=== PATIENT | male | born 1950 | race Caucasian/White ===

== ENCOUNTER 2017-07-26 00:02 | Emergency (ER) | payer MEDICARE, OTHER ==
[~2017-07-26] VITALS: Ht 177.8 cm; Wt 89.9 kg
--- NOTE | 2017-07-26 01:10 | PHYS DOC ---
Adult General Chief Complaint Chief Complaint: MECHANICAL FALL HPI HPI Patient is a 66-year-old male presenting to the emergency department for evaluation of multiple areas of pain status post fall down 15 steps. Patient took a total of 610 mg Ambien tablets in approximately 2 hour times and with his last one being at 9 PM. He was trying to get up and go the bathroom and was apparently confused and was at the top of the stairway and fell down. He was immediately arousable by family and they wanted to call EMS however patient said that he was feeling fine so they drove him here. says that this is not uncommon for him to take multiple doses of Ambien but usually only takes 2- 3 tablets. He says that he did not do this to hurt himself rather he has a great deal of difficulty sleeping and has not slept in 2-3 days so he took the increased ambient doses. He is complaining of pain in his left hip and pelvis left shoulder left elbow and right pinky finger Review of Systems Review of Systems Constitutional: Denies fever or chills [] Eyes: Denies change in visual acuity, redness, or eye pain [] HENT: Denies nasal congestion or sore throat [] Respiratory: Denies cough or shortness of breath [] Cardiovascular: No additional information not addressed in HPI [] GI: Denies abdominal pain, nausea, vomiting, bloody stools or diarrhea [] : Denies dysuria or hematuria [] Musculoskeletal: + back pain, joint pain [] Integument: + abrasion Neurologic: Denies headache, focal weakness or sensory changes [] All other systems were reviewed and found to be within normal limits, except as documented in this note. Current Medications Current Medications Current Medications Medications (Trade) Dose Ordered Sig/Ginny Start Time Stop Time Status Last Admin Dose Admin Diphtheria/ Tetanus/Acell Pertussis (Boostrix) 0.5 ml ONCE ONCE 07/26/17 01:00 07/26/17 01:01 UNV Physical Exam Physical Exam Constitutional: Well developed, well nourished, no acute distress, non-toxic appearance. [] HENT: Normocephalic, atraumatic, bilateral external ears normal, oropharynx moist, no oral exudates, nose normal. [] Eyes: PERRLA, EOMI, conjunctiva normal, no discharge. [] Neck: + diffuse midline and paraspinal C spine pain to palpation Cardiovascular:Heart rate regular rhythm, no murmur [] Lungs & Thorax: Bilateral breath sounds clear to auscultation [] Abdomen: Bowel sounds normal, soft, no tenderness, no masses, no pulsatile masses. [] Skin: multiple abrasions and skin tears Back: + ttp of midline t and l spine Extremities: ttp of BL elbows and L hand Neurologic: Alert and oriented X 3, normal motor function, normal sensory function, no focal deficits noted. [] EKG EKG [] Radiology/Procedures Radiology/Procedures CT lumbar spine without contrast History: Pain status post fall Axial helical images of the lumbar spine were obtained without contrast. Axial, coronal and sagittal reconstruction was performed. Findings: The vertebral bodies are aligned. There is no loss of vertebral body stature. There is a distracted fractures of the left transverse process of L4. Evaluation of the central canal is limited without contrast. Diffuse circumferential disc bulge and hypertrophy of the facets and ligament flavum results in mild to moderate central stenosis at L2-L3 and mild central stenosis at L3-L4. There is moderate narrowing of multiple neuroforamen below the level of the exiting nerve roots. Impression: Acute traumatic fracture of the left transverse process of L4. PQRS Compliance Statement: One or more of the following individualized dose reduction techniques were utilized for this examination: 1. Automated exposure control 2. Adjustment of the mA and/or kV according to patient size 3. Use of iterative reconstruction technique Electronically signed by: Syed Wilhelm III, MD (07/26/2017 2:06 AM) [place] [id number] DICTATED AND SIGNED BY: SYED WILHELM III, MD DATE: 07/26/17157 CT thoracic spine without contrast History: Back pain Axial helical images of the thoracic spine were obtained without contrast. Axial, coronal and sagittal reconstruction was performed. Findings: The vertebral bodies are aligned. There is no loss of vertebral body stature. Evaluation of the central canal is limited without contrast. There is no evidence of significant central or neuroforaminal stenosis. Impression: No acute findings. PQRS Compliance Statement: One or more of the following individualized dose reduction techniques were utilized for this examination: 1. Automated exposure control 2. Adjustment of the mA and/or kV according to patient size 3. Use of iterative reconstruction technique Electronically signed by: Syed Wilhelm III, MD (07/26/2017 2:12 AM) [place] [id number] DICTATED AND SIGNED BY: SYED WILHELM III, MD DATE: 07/26/[address] Head W/O Contrast: History: Pain, s/p fall. Abrasion to forehead. Hx degenerative disc disease in c-spine Comparison: none Axial images were obtained without contrast. The garcias and white matter appears normal and symmetrical for the patients age. There is no mass effect, extraaxial fluid collections or hydrocephalus. There is no gross bleed. There is no focal loss of garcias-white matter distinction to suggest acute ischemia, i.e. stroke. Impression: No acute findings. End impression CT C-Spine without contrast: Clinical History: Pain, s/p fall. Abrasion to forehead. Hx degenerative disc disease in c-spine Technique: Axial helical images of the cervical spine were obtained without contrast, axial coronal and sagittal reconstruction was performed. Findings: Mild loss of stature of the C6 and C7 vertebral bodies appears be secondary to degenerative endplate changes. There is no prevertebral soft tissue swelling. The vertebral bodies are well aligned. There is straightening of the normal cervical lordosis which can be positional or could be chronic. The C1-C2 relationship is normal. The visualized osseous structures appear normal. Evaluation of the central canal is limited without contrast. There is multiple posterior disc bulges resulting in flattening of the thecal sac. There does not appear to be gross flattening of the cervical cord. There is moderate narrowing of multiple neuroforamen. Impression: No acute findings. Clinical correlation suggested. PQRS Compliance Statement: One or more of the following individualized dose reduction techniques were utilized for this examination: 1. Automated exposure control 2. Adjustment of the mA and/or kV according to patient size 3. Use of iterative reconstruction technique Electronically signed by: Syed Wilhelm III, MD (07/26/2017 3:33 AM) [facility] DICTATED AND SIGNED BY: SYED WILHELM III, MD DATE: 07/26/[address] chest abdomen and pelvis with contrast: History: Pain status post fall Axial helical images of the chest abdomen and pelvis were obtained after the administration of 75 cc IV Isovue-370 contrast. Delayed images were obtained from above the kidneys to the urinary bladder. Comparison: none CT OF THE CHEST WITH IV CONTRAST: There is no mediastinal lymphadenopathy or hematoma. There is no hilar lymphadenopathy. Impression: No acute findings. End Impression CT SCAN OF THE ABDOMEN WITH IV CONTRAST: Findings: Liver: Unremarkable Spleen: Unremarkable Pancreas: Unremarkable Adrenal Glands: Unremarkable Kidneys: Unremarkable Evaluation of stomach and bowel is limited without oral contrast. There is no mass or lymphadenopathy. There is no free air. There is no free fluid. Impression: No acute findings. End Impression CT OF THE PELVIS WITH IV CONTRAST: There is no lymphadenopathy or free fluid. The bladder appears normal without extravasation of contrast. There is no pericolonic inflammation. There is a 4 cm soft tissue hematoma posterior laterally on the left. Impression: 4 cm soft tissue flank hematoma on the left. End impression PQRS Compliance Statement: One or more of the following individualized dose reduction techniques were utilized for this examination: 1. Automated exposure control 2. Adjustment of the mA and/or kV according to patient size 3. Use of iterative reconstruction technique Electronically signed by: Syed Wilhelm III, MD (07/26/2017 3:57 AM) [facility] DICTATED AND SIGNED BY: SYED WILHELM III, MD DATE: 07/26/17 0333 Course & Med Decision Making Course & Med Decision Making I spoke to poison center about the Ambien ingestion and they recommended observation for 4-6 hours or until completely mentally clear. Patient is surprisingly arousable and interactive. Given his age and mechanism with ingestion he will get CT scan and plain films of the areas that are hurting him. tdap updated. He said he was willing to walk on scene but he was slow and had significant pain to L hip. Patient is quite interesting and pleasant to be around. Unfortunately he has some sleep issues and took too much of his Ambien. He admitted it was a dumb thing to do and said that he would refrain from doing this in the future. Fortunately for the patient he does not appear to have any life-threatening injuries. On repeat examination he has a normal neurologic exam with normal vital signs and is wanting to go home and smokes cigarettes. Patient is stable for discharge in my estimation as he is up walking around in no obvious distress. I discussed the hematoma and the transverse process fracture and all other incidental findings with the patient. I told him that he would need follow-up for these findings and the incidental findings early next week. I told him about rice recommendations in addition to NSAIDs. Patient told to come back to the emergency department with worsening pain weakness or other general concerns. Patient aware and agreeable with plan for discharge and verbalized understanding of the above instructions. Dragon Disclaimer Dragon Disclaimer This electronic medical record was generated, in whole or in part, using a voice recognition dictation system. Departure Departure: Impression: Primary Impression: Fracture of transverse process of lumbar vertebra Additional Impressions: Multiple abrasions Hematoma of left flank Disposition: HOME, SELF-CARE Condition: STABLE Referrals: ROHAN GOMEZ (PCP) Patient Instructions: Transverse Process Fracture Additional Instructions: TAKE 400MG OF IBUPROFEN EVERY 6 HOURS AND THE NORCO FOR BREAKTHROUGH PAIN. FOLLOW WITH A PCP ON FRIDAY OR FRIDAY TO ENSURE IMPROVEMENT AND COME BACK TO THE ED WITH ANY NEW OR WORSENING SYMPTOMS. THANK YOU! Scripts Hydrocodone Bit/Acetaminophen (NORCO 5-325 TABLET) 1 Each Tablet 1 TAB PO PRN Q6HRS Y for PAIN, #20 TAB 0 Refills Prov: RONNIE ALARCON DO 07/26/17 Problem Qualifiers Primary Impression: Fracture of transverse process of lumbar vertebra Encounter type: initial encounter Fracture type: closed Qualified Codes: S32.009A - Unspecified fracture of unspecified lumbar vertebra, initial encounter for closed fracture RONNIE ALARCON DO Jul 26, 2017 01:10
[2017-07-26] MEDS ORDERED: DIPHTH,PERTUSS(ACELL),TET TOX 0.5 ML DISP.SYRIN. VAX IM ONE (01:30)
--- NOTE | 2017-07-26 02:09 | RAD ---
CT lumbar spine without contrast History: Pain status post fall Axial helical images of the lumbar spine were obtained without contrast. Axial, coronal and sagittal reconstruction was performed. Findings: The vertebral bodies are aligned. There is no loss of vertebral body stature. There is a distracted fractures of the left transverse process of L4. Evaluation of the central canal is limited without contrast. Diffuse circumferential disc bulge and hypertrophy of the facets and ligament flavum results in mild to moderate central stenosis at L2-L3 and mild central stenosis at L3-L4. There is moderate narrowing of multiple neuroforamen below the level of the exiting nerve roots. Impression: Acute traumatic fracture of the left transverse process of L4. PQRS Compliance Statement: One or more of the following individualized dose reduction techniques were utilized for this examination: 1. Automated exposure control 2. Adjustment of the mA and/or kV according to patient size 3. Use of iterative reconstruction technique Electronically signed by: Swapnil Pat III, MD (07/26/2017 2:06 AM) [facility]
--- NOTE | 2017-07-26 02:15 | RAD ---
CT thoracic spine without contrast History: Back pain Axial helical images of the thoracic spine were obtained without contrast. Axial, coronal and sagittal reconstruction was performed. Findings: The vertebral bodies are aligned. There is no loss of vertebral body stature. Evaluation of the central canal is limited without contrast. There is no evidence of significant central or neuroforaminal stenosis. Impression: No acute findings. PQRS Compliance Statement: One or more of the following individualized dose reduction techniques were utilized for this examination: 1. Automated exposure control 2. Adjustment of the mA and/or kV according to patient size 3. Use of iterative reconstruction technique Electronically signed by: Swapnil Pat III, MD (07/26/2017 2:12 AM) [facility]
[2017-07-26 02:33] LABS: ALBUMIN 4.2 g/dL (3.4-5.0); ALBUMIN/GLOBULIN RATIO 1.3 (1.0-1.7); CALCIUM 9.1 mg/dL (8.5-10.1); CREATININE 1.1 mg/dL (0.7-1.3); POTASSIUM 3.7 mmol/L (3.5-5.1); TOTAL BILIRUBIN 0.3 mg/dL (0.2-1.0); TOTAL PROTEIN 7.5 g/dL (6.4-8.2)
[2017-07-26 02:43] LABS: BASO # 0.1 x10^3/uL (0.0-0.2); BASO % 1 % (0-3); EOS # 0.1 x10^3/uL (0.0-0.7); EOS % 0 % (0-3); HEMATOCRIT 39.2 % (39.0-53.0); HEMOGLOBIN 13.5 g/dL (13.0-17.5); LYMPH # 1.7 x10^3/uL (1.0-4.8); LYMPH % 12 % (24-48); MEAN CORPUSCULAR HEMOGLOBIN 33 pg (25-35); MEAN CORPUSCULAR HGB CONC 34 g/dL (31-37); MEAN CORPUSCULAR VOLUME 95 fL (79-100); MONO % 7 % (0-9); NEUT # 12.1 x10^3uL (1.8-7.7); NEUT % 81 % (31-73); PLATELET COUNT 299 x10^3/uL (140-400); RED BLOOD COUNT 4.13 x10^6/uL (4.30-5.70); RED CELL DISTRIBUTION WIDTH 13.7 % (11.5-14.5); WHITE BLOOD COUNT 14.9 x10^3/uL (4.0-11.0)
[2017-07-26] MEDS ORDERED: IOHEXOL 300 MG/ML 75 ML VIAL. IV ONE (03:00)
[2017-07-26] MEDS ORDERED: CONTRAST GIVEN MC PRN (03:15)
--- NOTE | 2017-07-26 03:36 | RAD ---
CT Head W/O Contrast: History: Pain, s/p fall. Abrasion to forehead. Hx degenerative disc disease in c-spine Comparison: none Axial images were obtained without contrast. The garcias and white matter appears normal and symmetrical for the patients age. There is no mass effect, extraaxial fluid collections or hydrocephalus. There is no gross bleed. There is no focal loss of garcias-white matter distinction to suggest acute ischemia, i.e. stroke. Impression: No acute findings. End impression CT C-Spine without contrast: Clinical History: Pain, s/p fall. Abrasion to forehead. Hx degenerative disc disease in c-spine Technique: Axial helical images of the cervical spine were obtained without contrast, axial coronal and sagittal reconstruction was performed. Findings: Mild loss of stature of the C6 and C7 vertebral bodies appears be secondary to degenerative endplate changes. There is no prevertebral soft tissue swelling. The vertebral bodies are well aligned. There is straightening of the normal cervical lordosis which can be positional or could be chronic. The C1-C2 relationship is normal. The visualized osseous structures appear normal. Evaluation of the central canal is limited without contrast. There is multiple posterior disc bulges resulting in flattening of the thecal sac. There does not appear to be gross flattening of the cervical cord. There is moderate narrowing of multiple neuroforamen. Impression: No acute findings. Clinical correlation suggested. PQRS Compliance Statement: One or more of the following individualized dose reduction techniques were utilized for this examination: 1. Automated exposure control 2. Adjustment of the mA and/or kV according to patient size 3. Use of iterative reconstruction technique Electronically signed by: Swapnil Pat III, MD (07/26/2017 3:33 AM) [facility]
[2017-07-26 03:56] VITALS: BP 129/94
--- NOTE | 2017-07-26 04:00 | RAD ---
CT chest abdomen and pelvis with contrast: History: Pain status post fall Axial helical images of the chest abdomen and pelvis were obtained after the administration of 75 cc IV Isovue-370 contrast. Delayed images were obtained from above the kidneys to the urinary bladder. Comparison: none CT OF THE CHEST WITH IV CONTRAST: There is no mediastinal lymphadenopathy or hematoma. There is no hilar lymphadenopathy. Impression: No acute findings. End Impression CT SCAN OF THE ABDOMEN WITH IV CONTRAST: Findings: Liver: Unremarkable Spleen: Unremarkable Pancreas: Unremarkable Adrenal Glands: Unremarkable Kidneys: Unremarkable Evaluation of stomach and bowel is limited without oral contrast. There is no mass or lymphadenopathy. There is no free air. There is no free fluid. Impression: No acute findings. End Impression CT OF THE PELVIS WITH IV CONTRAST: There is no lymphadenopathy or free fluid. The bladder appears normal without extravasation of contrast. There is no pericolonic inflammation. There is a 4 cm soft tissue hematoma posterior laterally on the left. Impression: 4 cm soft tissue flank hematoma on the left. End impression PQRS Compliance Statement: One or more of the following individualized dose reduction techniques were utilized for this examination: 1. Automated exposure control 2. Adjustment of the mA and/or kV according to patient size 3. Use of iterative reconstruction technique Electronically signed by: Swapnil Pat III, MD (07/26/2017 3:57 AM) [facility]
[2017-07-26] MEDS ORDERED: KETOROLAC 15 MG/ML VIAL. IV ONE (04:15)
[2017-07-26] MEDS ORDERED: HYDROcodone/APAP 5/325MG 1 TAB TABLET PO ONE (04:15)
[2017-07-26] MEDS ORDERED: HYDR-971 PO (04:16)
--- NOTE | 2017-07-26 07:25 | RAD ---
Left hand, 3 views, 07/26/2017: History: Fall, pain No fracture or dislocation is identified. There is mild degenerative change at the first CMC joint. IMPRESSION: No acute bony abnormality is detected.
--- NOTE | 2017-07-26 07:26 | RAD ---
Bilateral elbows, 6 views, 07/26/2017: History: Fall, pain No fracture or dislocation is identified. No joint effusion is seen. IMPRESSION: No acute bony abnormality is detected.
== END 2017-07-26 04:20 | disposition home or self-care (01) ==
LOC: ER 00:02
DX: S32.048A Other fracture of fourth lumbar vertebra, initial encounter for closed fracture (principal); S30.1XXA Contusion of abdominal wall, initial encounter; S00.81XA Abrasion of other part of head, initial encounter; M25.552 Pain in left hip; M25.522 Pain in left elbow; M25.521 Pain in right elbow; W10.8XXA Fall (on) (from) other stairs and steps, initial encounter; Y93.89 Activity, other specified; Y99.8 Other external cause status; Y92.89 Other specified places as the place of occurrence of the external cause
CPT/HCPCS: 36415; 70450; 71260; 72125; 72128; 72131; 73080; 73130; 74177; 80053; 83690; 83735; 85025; 85610; 85730; 90471; 90715; 99285; G0480; Q9967

== ENCOUNTER 2019-08-13 15:16 | Emergency (ER) | payer MEDICARE, OTHER ==
[~2019-08-13] VITALS: Ht 177.8 cm; Wt 90.0 kg
[~2019-08-13 15:16] MED LIST: HYDR-3165 PO
[2019-08-13 15:20] VITALS: BP 112/84
--- NOTE | 2019-08-13 15:44 | RAD ---
Study: CR FOOT RIGHT 3V Indication: Injury. Comparison: None. Findings: Bipartite configuration of both hallux sesamoids. Relatively pronounced diastases between the two halves of both sesamoids though with well-corticated margins. No acute fracture is seen throughout the foot or traumatic malalignment. Chronic scalloping along the posterior/medial aspect of the navicular at the expected location of the posterior tibial tendon insertion. Impression: No acute fracture or traumatic malalignment is identified. There is a bipartite configuration of both hallux sesamoids with relatively pronounced diastases between the two halves of both sesamoids. This does not appear acute by radiography but recommend correlation for localized tenderness. Electronically signed by: SHAHID EBNNETT MD (08/13/2019 3:41 PM) [id number]
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
[2019-08-13] MEDS ORDERED: HYDR-3165 PO (16:04)
== END 2019-08-13 16:08 | disposition home or self-care (01) ==
LOC: ER 15:16
DX: S90.31XA Contusion of right foot, initial encounter (principal); E78.00 Pure hypercholesterolemia, unspecified; I10 Essential (primary) hypertension; V29.9XXA Motorcycle rider (driver) (passenger) injured in unspecified traffic accident, initial encounter; Y93.89 Activity, other specified; Y92.89 Other specified places as the place of occurrence of the external cause; Y99.8 Other external cause status
CPT/HCPCS: 73630; 99283

== ENCOUNTER → 2019-12-17 | Outpatient (CLI) | payer MEDICARE, OTHER ==
--- NOTE | 2019-12-17 09:21 | RAD ---
PROCEDURE: WRIST 3V RIGHT CLINICAL INDICATION / HISTORY: Reason: RIGHT WRIST PAIN, GANGLION CYST ON LATERAL WRIST FOR 1 YR / Spl. Instructions: / History: . TECHNIQUE: Right wrist 3 views. AP, lateral, oblique views. COMPARISON: Contralateral, left hand x-rays of 07/26/2017 FINDINGS: The radiocarpal and intracarpal relationships are maintained. There is no fracture or dislocation. The bone density is normal. Soft tissues show smooth, convex marginated 1 cm soft tissue mass superficial to the radial styloid process.. IMPRESSION: No acute osseous abnormality. There is a 1 cm soft tissue mass superficial to the radial styloid process. This can be evaluated in greater detail with MRI on an elective basis if clinically warranted. Electronically signed by: Raymond Amador MD (12/17/2019 9:18 AM) [id number]
== END | disposition home or self-care (01) ==
LOC: DXRAD 08:26
PROVIDERS: ATTEND Orthopaedic Surgery Sports Medicine
DX: M67.431 Ganglion, right wrist (principal); M25.531 Pain in right wrist
CPT/HCPCS: 73110

== ENCOUNTER 2020-01-25 08:27 | Emergency (ER) | payer MEDICARE, OTHER ==
[~2020-01-25] VITALS: Ht 177.8 cm; Wt 89.2 kg
[2020-01-25] MEDS ORDERED: IOHEXOL 300 MG/ML 75 ML VIAL. IV ONE (08:45)
[2020-01-25] MEDS ORDERED: FAMOTIDINE 20 MG/2 ML VIAL IVP ONE (08:45)
[2020-01-25] MEDS ORDERED: IV NORMAL SALINE 1,000ML 1,000 ML IV ONE (08:45)
[2020-01-25] MEDS ORDERED: ONDANSETRON PF 4 MG/2 ML VIAL. IVP ONE (08:45)
[2020-01-25 09:00] LABS: BASO % 0 % (0-3); EOS % 0 % (0-3); HEMATOCRIT 32.3 % (39.0-53.0); HEMOGLOBIN 10.7 g/dL (13.0-17.5); LYMPH % 17 % (24-48); MEAN CORPUSCULAR HEMOGLOBIN 33 pg (25-35); MEAN CORPUSCULAR HGB CONC 33 g/dL (31-37); MEAN CORPUSCULAR VOLUME 98 fL (79-100); MONO # 0.3 x10^3/uL (0.0-1.1); MONO % 3 % (0-9); NEUT # 9.6 x10^3uL (1.8-7.7); NEUT % 80 % (31-73); PLATELET COUNT 358 x10^3/uL (140-400); RED BLOOD COUNT 3.28 x10^6/uL (4.30-5.70); RED CELL DISTRIBUTION WIDTH 13.8 % (11.5-14.5)
[2020-01-25 09:10] LABS: CALCIUM 10.9 mg/dL (8.5-10.1); CREATININE 1.3 mg/dL (0.7-1.3); GFR 54.7; POTASSIUM 3.6 mmol/L (3.5-5.1)
--- NOTE | 2020-01-25 09:18 | EKG ---
[address] [address] Test Date: 2020-01-25 Test Time: 09:11:03 Pat Name: KATE FABIAN Department: Room: Gender: M [employer]: LUIS : 1950 Requested By: LOUISE CROCKETT Order Number: [id number] Reading MD: Measurements Intervals [place] Rate: 82 P: 52 [place]: 178 QRS: 12 QRSD: 92 T: 60 QT: 348 QTc: 409 Interpretive Statements SINUS RHYTHM NORMAL ECG RI6.02 No previous ECG available for comparison
[2020-01-25 09:25] LABS: ALBUMIN 3.8 g/dL (3.4-5.0); ALBUMIN/GLOBULIN RATIO 1.2 (1.0-1.7); TOTAL BILIRUBIN 0.4 mg/dL (0.2-1.0); TOTAL PROTEIN 7.1 g/dL (6.4-8.2)
--- NOTE | 2020-01-25 09:45 | RAD ---
PQRS Compliance Statement: One or more of the following individualized dose reduction techniques were utilized for this examination: 1. Automated exposure control 2. Adjustment of the mA and/or kV according to patient size 3. Use of iterative reconstruction technique CT abdomen/pelvis with contrast 01/25/2020 8:38 AM INDICATION: Abdominal pain, nausea and vomiting with history of diverticulitis COMPARISON: None available TECHNIQUE: Multiple axial CT images of the abdomen and pelvis were obtained after the intravenous administration of 75 mL Omnipaque 300. Coronal and sagittal reformats are provided. FINDINGS: Lung bases are clear. Heart size is within normal limits. There are subcentimeter hypodensities within the hepatic parenchyma which measure up to 9 mm in segment (series 2, image 27). These findings are indeterminate, measuring higher than that of simple fluid. Spleen, bilateral adrenal glands, pancreas and gallbladder are normal in appearance. Abdominal aorta is tortuous and ectatic measuring up to 2.8 x 2.8 cm. There is moderate to advanced calcified and noncalcified atheromatous plaque. No pathologically enlarged lymph nodes are identified within the abdomen and pelvis. There is no free fluid or free intraperitoneal air. Kidneys enhance symmetrically. No suspicious renal mass. No hydronephrosis. Subcentimeter cortical hypodensity in the lateral interpolar right kidney is too small characterize, however statistically favored represent simple cyst. Small fat-containing right inguinal hernia. Urinary bladder is within normal limits in degree of distention. Prostate measures 4.1 x 5.4 cm in transaxial dimensions. There is mild colonic diverticulosis. The appendix is not definitively visualized. No pericecal inflammatory changes identified. Small large bowel are normal in caliber. No bowel obstruction or inflammation. Stomach is normal in appearance. No suspicious osseous abnormality is identified. Moderate lumbar spondylosis is noted. IMPRESSION: 1. No acute abnormality is identified in abdomen and pelvis. Specifically, mild diverticulosis without evidence for diverticulitis. 2. Appendix is not definitively visualized. 3. Subcentimeter hypodensities within the hepatic parenchyma measure up to 9 mm, indeterminate. Further catheterization with abdominal MRI with and without contrast is recommended. 4. Ectasia of infrarenal abdominal aorta measures up to 2.8 x 2.8 cm with moderate to advanced calcified and noncalcified atheromatous plaque. 5. Prostate is mildly enlarged measuring 4.1 x 5.4 cm transaxial dimensions. Electronically signed by: Socorro Erwin MD (01/25/2020 9:42 AM) [id number]
[2020-01-25 09:59] LABS: AMORPHOUS SEDIMENT,UR PRESENT /HPF; BACTERIA,URINE 0 /HPF (0-FEW); BILIRUBIN,URINE NEG (NEG); CLARITY,URINE CLEAR; COLOR,URINE YELLOW; GLUCOSE,URINE NEG (NEG); NITRITE,URINE NEG (NEG); UROBILINOGEN,URINE 0.2 mg/dL (0.2 mg/dL)
--- NOTE | 2020-01-25 10:17 | PHYS DOC ---
Past History Past Medical History: Depression, Diverticulitis, High Cholesterol, Hypertension Past Medical History Hiatal hernia Past Surgical History: Appendectomy, Other Additional Past Surgical Histo: COLON RESECTION Smoking: Cigarettes, Less than 1pk/day Alcohol Use: None (States he was a heavy drinker in the past, quit in 1983) Drug Use: None General Adult EDM: Chief Complaint: NAUSEA/VOMITING/DIARRHEA HPI: HPI: Patient is a 69 year old M who presents with epigastric abdominal pain that began yesterday around 6pm. Patient describes it as "gassy" and sharp, he rates it a 2/10, and denies radiation. He has associated nausea and vomiting x4. Patient complains of dark tarry stools that began at 2 AM. He states that when he gets up to go to the bathroom he feels dizzy, faint, and sweaty. He states that for the past year he has been taking about 10 Excedrin a day on and off when he is working, and he has not been eating/drinking much. He denies dysuria or frequency. He denies chest pain and fever. Review of Systems: Review of Systems: Constitutional: Denies fever; reports chills diaphoresis. Eyes: Denies redness or eye pain HENT: Denies nasal congestion or sore throat Respiratory: Denies cough or shortness of breath Cardiovascular: Denies chest pain or palpitations GI: Reports abdominal pain, nausea, and vomiting : Denies dysuria or hematuria Musculoskeletal: Denies back pain or joint pain Integument: Denies rash or skin lesions Neurologic: Denies headache, focal weakness or sensory changes; reports dizziness Complete systems were reviewed and found to be within normal limits, except as documented in this note. Current Medications: Current Meds: Current Medications Medications (Trade) Dose Ordered Sig/Ginny Start Time Stop Time Status Last Admin Dose Admin Famotidine (Pepcid Vial) 20 mg 1X ONCE 01/25/20 08:45 01/25/20 08:50 DC 01/25/20 08:49 20 MG Iohexol (Omnipaque 300 Mg/ml) 75 ml 1X ONCE 01/25/20 08:45 01/25/20 08:50 DC 01/25/20 09:07 75 ML Ondansetron HCl (Zofran) 4 mg 1X ONCE 01/25/20 08:45 01/25/20 08:50 DC 01/25/20 08:49 4 MG Sodium Chloride 1,000 ml @ 1,000 mls/hr 1X ONCE 01/25/20 08:45 01/25/20 09:44 DC 01/25/20 08:49 1,000 MLS/HR Allergies: Allergies: Allergies Coded Allergies Type Severity Reaction Last Updated Verified No Known Drug Allergies 01/25/20 No Physical Exam: PE: Constitutional: Well developed, well nourished. HENT: Normocephalic, atraumatic Eyes: Minimal conjunctival pallor, no discharge Neck: Normal range of motion, supple Lungs & Thorax: No respiratory distress, equal chest rise and fall Abdomen: Soft, slightly tender to palpation in epigastric region. Skin: Warm, dry, no erythema, no rash Back: No tenderness, no CVA tenderness Extremities: No tenderness, ROM intact, no edema Neurologic: Alert and oriented X 3, no focal deficits noted Psychologic: Affect normal, judgment normal Current Patient Data: Labs: Laboratory Tests Test 01/25/20 08:40 01/25/20 09:25 White Blood Count 12.0 x10^3/uL (4.0-11.0) H Red Blood Count 3.28 x10^6/uL (4.30-5.70) L Hemoglobin 10.7 g/dL (13.0-17.5) L Hematocrit 32.3 % (39.0-53.0) L Mean Corpuscular Volume 98 fL (79-100) Mean Corpuscular Hemoglobin 33 pg (25-35) Mean Corpuscular Hemoglobin Concent 33 g/dL (31-37) Red Cell Distribution Width 13.8 % (11.5-14.5) Platelet Count 358 x10^3/uL (140-400) Neutrophils (%) (Auto) 80 % (31-73) H Lymphocytes (%) (Auto) 17 % (24-48) L Monocytes (%) (Auto) 3 % (0-9) Eosinophils (%) (Auto) 0 % (0-3) Basophils (%) (Auto) 0 % (0-3) Neutrophils # (Auto) 9.6 x10^3uL (1.8-7.7) H Lymphocytes # (Auto) 2.0 x10^3/uL (1.0-4.8) Monocytes # (Auto) 0.3 x10^3/uL (0.0-1.1) Eosinophils # (Auto) 0.0 x10^3/uL (0.0-0.7) Basophils # (Auto) 0.0 x10^3/uL (0.0-0.2) Prothrombin Time 10.2 SEC (9.4-11.4) Prothrombin Time INR 1.0 (0.9-1.1) Activated Partial Thromboplast Time 22 SEC (23-33) L Sodium Level 137 mmol/L (136-145) Potassium Level 3.6 mmol/L (3.5-5.1) Chloride Level 99 mmol/L (98-107) Carbon Dioxide Level 25 mmol/L (21-32) Anion Gap 13 (6-14) Blood Urea Nitrogen 49 mg/dL (8-26) H Creatinine 1.3 mg/dL (0.7-1.3) Estimated GFR (Cockcroft-Gault) 54.7 BUN/Creatinine Ratio 38 (6-20) H Glucose Level 171 mg/dL (70-99) H Lactic Acid Level 1.7 mmol/L (0.4-2.0) Calcium Level 10.9 mg/dL (8.5-10.1) H Total Bilirubin 0.4 mg/dL (0.2-1.0) Aspartate Amino Transferase (AST) 11 U/L (15-37) L Alanine Aminotransferase (ALT) 17 U/L (16-63) Alkaline Phosphatase 49 U/L (46-116) Creatine Kinase 121 U/L (39-308) Creatine Kinase MB (Mass) 1.0 ng/mL (0.0-3.6) Creatine Kinase MB Relative Index 0.8 % (0-4) Troponin I Quantitative < 0.017 ng/mL (0-0.055) Total Protein 7.1 g/dL (6.4-8.2) Albumin 3.8 g/dL (3.4-5.0) Albumin/Globulin Ratio 1.2 (1.0-1.7) Lipase 96 U/L (73-393) Urine Collection Type Unknown Urine Color Yellow Urine Clarity Clear Urine pH 8.5 Urine Specific [place] 1.015 Urine Protein Neg (NEG-TRACE) Urine Glucose (UA) Neg mg/dL (NEG) Urine Ketones (Stick) Neg mg/dL (NEG) Urine Blood Trace (NEG) Urine Nitrite Neg (NEG) Urine Bilirubin Neg (NEG) Urine Urobilinogen Dipstick 0.2 mg/dL (0.2 mg/dL) Urine Leukocyte Esterase Neg (NEG) Urine RBC 1-2 /HPF (0-2) Urine WBC 1-4 /HPF (0-4) Urine Squamous Epithelial Cells None /LPF Urine Amorphous Sediment Present /HPF Urine Bacteria 0 /HPF (0-FEW) Vital Signs: Vital Signs Date Time Temp Pulse Resp B/P (MAP) Pulse Ox O2 Delivery O2 Flow Rate FiO2 01/25/20 09:23 87 16 140/94 (109) 99 Room Air 01/25/20 08:32 98.8 EKG: EKG: @09:11 Normal sinus rhythm at [address] elevation or T wave inversion. QRS 92 ms, QT 348 ms, QTc 409 ms. Radiology/Procedures: Radiology/Procedures: PROCEDURE: CT ABD PELV W/ IV CONTRST ONLY PQRS Compliance Statement: One or more of the following individualized dose reduction techniques were utilized for this examination: 1. Automated exposure control 2. Adjustment of the mA and/or kV according to patient size 3. Use of iterative reconstruction technique CT abdomen/pelvis with contrast 01/25/2020 8:38 AM INDICATION: Abdominal pain, nausea and vomiting with history of diverticulitis COMPARISON: None available TECHNIQUE: Multiple axial CT images of the abdomen and pelvis were obtained after the intravenous administration of 75 mL Omnipaque 300. Coronal and sagittal reformats are provided. FINDINGS: Lung bases are clear. Heart size is within normal limits. There are subcentimeter hypodensities within the hepatic parenchyma which measure up to 9 mm in segment (series 2, image 27). These findings are indeterminate, measuring higher than that of simple fluid. Spleen, bilateral adrenal glands, pancreas and gallbladder are normal in appearance. Abdominal aorta is tortuous and ectatic measuring up to 2.8 x 2.8 cm. There is moderate to advanced calcified and noncalcified atheromatous plaque. No pathologically enlarged lymph nodes are identified within the abdomen and pelvis. There is no free fluid or free intraperitoneal air. Kidneys enhance symmetrically. No suspicious renal mass. No hydronephrosis. Subcentimeter cortical hypodensity in the lateral interpolar right kidney is too small characterize, however statistically favored represent simple cyst. Small fat-containing right inguinal hernia. Urinary bladder is within normal limits in degree of distention. Prostate measures 4.1 x 5.4 cm in transaxial dimensions. There is mild colonic diverticulosis. The appendix is not definitively visualized. No pericecal inflammatory changes identified. Small large bowel are normal in caliber. No bowel obstruction or inflammation. Stomach is normal in appearance. No suspicious osseous abnormality is identified. Moderate lumbar spondylosis is noted. IMPRESSION: 1. No acute abnormality is identified in abdomen and pelvis. Specifically, mild diverticulosis without evidence for diverticulitis. 2. Appendix is not definitively visualized. 3. Subcentimeter hypodensities within the hepatic parenchyma measure up to 9 mm, indeterminate. Further catheterization with abdominal MRI with and without contrast is recommended. 4. Ectasia of infrarenal abdominal aorta measures up to 2.8 x 2.8 cm with moderate to advanced calcified and noncalcified atheromatous plaque. 5. Prostate is mildly enlarged measuring 4.1 x 5.4 cm transaxial dimensions. Electronically signed by: Socorro Erwin MD (01/25/2020 9:42 AM) [id number] Course & Med Decision Making: Course & Med Decision Making 69 yo M with history of diverticulitis, hiatal hernia, and chronic frequent aspirin use who presented with epigastric abdominal pain and dark, tarry stools, with associated N/V. CT showed no significant findings. CT with some incidental liver lesions appreciated. Hemoglobin >10 but appears to be drop from last results per [employer] review. WBC and lactic acid WNL. Occult stool positive. Orthostatic VS positive upon sitting. Patient also symptomatic. Patient requiring admission/transfer for further evaluation and treatment. Protonix bolus given. Patient declined admission/transfer. Patient advised of risks of leaving AMA including permanent disability and/or . Patient acknowledges understanding and agreement and is accepting of these risks. A copy of CT results provided to patient for future follow-up. Patient discharged with request for close outpatient follow-up with PCP/GI and to return to ED for any worsening of condition. Discussed findings and plan with patient, who acknowledges understanding and agreement. Hipolito Disclaimer: Hipolito Disclaimer: This electronic medical record was generated, in whole or in part, using a voice recognition dictation system. Departure Departure: Impression: Primary Impression: Acute GI bleeding Additional Impression: Orthostatic hypotension Disposition: 07 AGAINST MEDICAL ADVICE Condition: GUARDED Referrals: ROHAN GOMEZ (PCP) PATRICIA SURESH MD Patient Instructions: Discharge Against Medical Advice, Gastrointestinal Bleeding, [id number], Incidental Abdominal Radiological Finding, Orthostatic Hypotension Additional Instructions: Due to concern for possible stomach ulceration please STOP all medications that can cause increased bleeding or irritation to stomach lining including Asprin, Ibuprofen (Motrin, Advil), Naproxen (Aleve), and steroids. Increase fluid hydration. Give copy of your CT results to your doctor for future re-evaluation. Scripts Pantoprazole Sodium (PROTONIX) 40 Mg Tablet.dr 1 TAB PO BID for Gastritis/GI bleed, #30 TAB Prov: LOUISE CROCKETT DO 01/25/20 Ondansetron (ONDANSETRON ODT) 4 Mg Tab.rapdis 1 TAB PO PRN Q6-8HRS PRN for NAUSEA, #16 TAB Prov: LOUISE CROCKETT DO 01/25/20 Justification of Admission: Justification of Admission: Justification of Admission Dx: N/A LOUISE CROCKETT DO Jan 25, 2020 10:17
[2020-01-25 10:50] LABS: FECAL OB PT POSITIVE (NEG)
[2020-01-25] MEDS ORDERED: PANTOPRAZOLE IV 40 MG VIAL. IVP ONE (11:00)
[2020-01-25] MEDS ORDERED: PANTOPRAZOLE IV 80 MG in IV NORMAL SALINE 100ML 100 ML IV ONE (11:00)
[2020-01-25 11:21] VITALS: BP 142/86
[2020-01-25] MEDS ORDERED: ONDA4TAB12 PO (11:29)
[2020-01-25] MEDS ORDERED: PANT40TA3 PO (11:29)
--- NOTE | 2020-01-26 13:26 | NUR ---
IP: patient notified of COVID result.
== END 2020-01-25 11:49 | disposition left against medical advice (07) ==
LOC: ER 08:27
DX: K92.2 Gastrointestinal hemorrhage, unspecified (principal); I95.1 Orthostatic hypotension; E78.00 Pure hypercholesterolemia, unspecified; I10 Essential (primary) hypertension; F17.210 Nicotine dependence, cigarettes, uncomplicated; Z90.89 Acquired absence of other organs
CPT/HCPCS: 36415; 74177; 80053; 81001; 82274; 82553; 83605; 83690; 84484; 85025; 85610; 85730; 93005; 96361; 96365; 96375; 99285; C9113; J2405; J3490; J7030; Q9967; U0003

== ENCOUNTER → 2020-12-04 | Outpatient (CLI) | payer MEDICARE, OTHER ==
[~2020-12-04] MED LIST changes: +ONDA4TAB12 PO; +PANT40TA3 PO
--- NOTE | 2020-12-04 13:19 | RAD ---
EXAM: Nuclear bone scan. HISTORY: Prostate cancer. TECHNIQUE: Following the intravenous injection of 25 mCi of Tc 99m labeled methylene diphosphonate (M DP), whole body imaging was performed. COMPARISON: CT dated 01/25/2020. FINDINGS: There is a focus of increased radiotracer activity overlying the lateral left 10th rib, and to lesser extent, the posterior left 11th rib. There is degenerative radiotracer activity involving the shoulders, sternoclavicular joints, knees and right foot, particularly the right first metatarsal phalangeal joint. There is radiotracer activity within the renal collecting system. There is suspect ed radiotracer contamination within the right antecubital fossa. IMPRESSION: 1. Focal increased radiotracer activity along the lateral left 10th rib and posterior left 11th rib. There are chronic appearing fractures in these locations on the prior CT. The persistent radiotracer activity associated with the 10th rib fracture may be due to nonunion. The possibility of superimpose d acute or subacute fractures or pathologic fractures is not excluded on this exam. This can be nuha r assessed with a CT or radiographs. 2. Degenerative radiotracer activity involving the axial and appendicular skeleton, described above. Electronically signed by: Deb Latif MD (12/04/2020 1:17 PM) [id number]
== END ==
LOC: NM 08:32
PROVIDERS: ATTEND Urology
DX: C61 Malignant neoplasm of prostate (principal)
CPT/HCPCS: 78306; A9503

== ENCOUNTER 2020-12-07 19:35 | Emergency (ER) | payer MEDICARE, OTHER ==
[~2020-12-07] VITALS: Ht 177.8 cm; Wt 92.1 kg
--- NOTE | 2020-12-07 19:40 | PHYS DOC ---
Past History Past Medical History: Depression, Diverticulitis, High Cholesterol, Hypertension Past Surgical History: Appendectomy, Other Additional Past Surgical Histo: COLON RESECTION Smoking: Cigarettes, Less than 1pk/day Alcohol Use: None Drug Use: None General Adult HPI: HPI: ".. I was trying to lift the front of my Zero turn mower.. .and felt something rip in this Lt. arm .. " Patient is a 70 year old male who presents with above hx and complaints of Lt. arm injury. Distal neurovascular is equal to right arm. Does have tenderness in the mid forearm. Does have some mild tenderness of left upper arm. There is some tenderness in the left shoulder and does maintain range of motion with some discomfort. Patient's focal area of tenderness is left forearm. There is some swelling at this site. Patient does have past medical history depression, diverticulitis, elevated cholesterol, hypertension, hiatal hernia, and past alcohol abuse and cigarette use approximate 1 pack/day. Pt. follows with [facility] as primary. Review of Systems: Review of Systems: Constitutional: Denies fever or chills Eyes: Denies change in visual acuity HENT: Denies nasal congestion or sore throat Respiratory: Denies cough or shortness of breath Cardiovascular: Denies chest pain or edema GI: Denies abdominal pain, nausea, vomiting, bloody stools or diarrhea : Denies dysuria Musculoskeletal: Complains of left arm injury Integument: Denies rash Neurologic: Denies headache, focal weakness or sensory changes Endocrine: Denies polyuria or polydipsia Lymphatic: Denies swollen glands Psychiatric: Denies depression or anxiety Family History: Family History: Noncontributory to presentation Current Medications: Current Meds: See nursing for home meds Allergies: Allergies: Allergies Coded Allergies Type Severity Reaction Last Updated Verified No Known Drug Allergies 01/25/20 No Physical Exam: PE: Constitutional: Well developed, well nourished, moderate distress severe acute distress, non-toxic appearance. [] HENT: Normocephalic, atraumatic, bilateral external ears normal, oropharynx moist, no oral exudates, nose normal. [] Eyes: PERRLA, EOMI, conjunctiva normal, no discharge. [] Neck: Normal range of motion, no tenderness, supple, no stridor. [] Cardiovascular:Heart rate regular rhythm, no murmur [] Lungs & Thorax: Bilateral breath sounds clear to auscultation [] Abdomen: Bowel sounds normal, soft, no tenderness, no masses, no pulsatile masses. Old surgery scar Skin: Warm, dry, no erythema, no rash. [] Back: No tenderness, no CVA tenderness. [] Extremities: No tenderness, no cyanosis, no clubbing, ROM intact, no edema. Except findings in left arm as per HPI Neurologic: Alert and oriented X 3, normal motor function, normal sensory function, no focal deficits noted. [] Psychologic: Affect anxious, judgement normal, mood normal. [] EKG: EKG: [] Radiology/Procedures: Radiology/Procedures: [[address] [address] IMAGING REPORT Signed PATIENT: KATE FABIAN ACCOUNT: [id number] : 1950 LOCATION: ER AGE: 70 SEX: M EXAM STATUS: REG ER ORD. PHYSICIAN: GRACIE MALONE MD REASON: injury on zero turn mower PROCEDURE: HUMERUS LEFT XR HUMERUS_LT 2 VIEWS, XR FOREARM_LEFT 2 VIEWS History: Reason: injury on zero turn mower / Spl. Instructions: / History: . Pain Technique: 2 views left humerus and 2 views left forearm Comparison: None. Findings: Normal alignment of the humerus. No acute fracture. Moderate left glenohumeral DJD. Normal alignment of the forearm. No acute fracture. Impression: 1. No acute osseous abnormality. Electronically signed by: Jonny Charles DO (12/07/2020 9:44 PM) [facility] DICTATED AND SIGNED BY: JONNY CHARLES DO DATE: 12/07/202141 CC: GRACIE MALONE MD; ROHAN GOMEZ ~MTH0 0 ][address] [address] IMAGING REPORT Signed PATIENT: KATE FABIAN ACCOUNT: [id number] : 1950 LOCATION: ER AGE: 70 SEX: M EXAM STATUS: REG ER ORD. PHYSICIAN: GRACIE MALONE MD REASON: injury zero turn mower PROCEDURE: CHEST AP ONLY XR CHEST 1V History: Reason: injury zero turn mower / Spl. Instructions: / History: . Pain Comparison: None. Findings: No consolidation or pleural effusion. Normal heart size. No pneumothorax. Impression: 1. No acute cardiopulmonary process. Electronically signed by: Jonny Charles DO (12/07/2020 9:41 PM) [facility] DICTATED AND SIGNED BY: JONNY CHARLES DO DATE: 12/07/202139 CC: GRACIE MALONE MD; ROHAN GOMEZ Score: C/O Chest Pain: N/A Risk Factors: Risk Factors: DM, Current or recent (<one month) smoker, HTN, HLP, family history of CAD, obesity. Risk Scores: Score 0 - 3: 2.5% MACE over next 6 weeks - Discharge Home Score 4 - 6: 20.3% MACE over next 6 weeks - Admit for Clinical Observation Score 7 - 10: 72.7% MACE over next 6 weeks - Early Invasive Strategies Course & Med Decision Making: Course & Med Decision Making Pertinent Labs and Imaging studies reviewed. (See chart for details) Patient use ice packs as needed. Elevate arm. Wear sling. Take Tylenol and ibuprofen for pain . Marked pain take Vicoprofen up to 4 times a day. Follow- up with [facility] orthopedics. Advised patient for home read as no obvious fracture however I do have some question about the area of edema on mid forearm and possible vein line or nondisplaced fracture. Must follow-up. Impression: 1. Left forearm injury-muscle strain tear [] Dragon Disclaimer: Dragon Disclaimer: This electronic medical record was generated, in whole or in part, using a voice recognition dictation system. Departure Departure: Referrals: ROHAN GOMEZ (PCP) Scripts Hydrocodone/Ibuprofen (HYDROCODONE-IBUPROFEN 7.5-200 ) 1 Each Tablet 1 TAB PO PRN Q6HRS PRN for PAIN, #30 TAB 0 Refills Prov: GRACIE MALONE MD 12/07/20 Hipolito Disclaimer This chart was dictated in whole or in part using Voice Recognition software in a busy, high-work load, and often noisy Emergency Department environment. It may contain unintended and wholly unrecognized errors or omissions. Dragon Disclaimer This chart was dictated in whole or in part using Voice Recognition software in a busy, high-work load, and often noisy Emergency Department environment. It may contain unintended and wholly unrecognized errors or omissions. GRACIE MALONE MD Dec 07, 2020 19:40
[2020-12-07] MEDS ORDERED: KETOROLAC 60 MG/2 ML VIAL. IM ONE (20:00)
--- NOTE | 2020-12-07 21:43 | RAD ---
XR CHEST 1V History: Reason: injury zero turn mower / Spl. Instructions: / History: . Pain Comparison: None. Findings: No consolidation or pleural effusion. Normal heart size. No pneumothorax. Impression: 1. No acute cardiopulmonary process. Electronically signed by: Jonny Charles DO (12/07/2020 9:41 PM) [facility]
--- NOTE | 2020-12-07 21:46 | RAD ---
XR HUMERUS_LT 2 VIEWS, XR FOREARM_LEFT 2 VIEWS History: Reason: injury on zero turn mower / Spl. Instructions: / History: . Pain Technique: 2 views left humerus and 2 views left forearm Comparison: None. Findings: Normal alignment of the humerus. No acute fracture. Moderate left glenohumeral DJD. Normal alignment of the forearm. No acute fracture. Impression: 1. No acute osseous abnormality. Electronically signed by: Jonny Charles DO (12/07/2020 9:44 PM) [facility]
--- NOTE | 2020-12-07 21:46 | RAD ---
XR HUMERUS_LT 2 VIEWS, XR FOREARM_LEFT 2 VIEWS History: Reason: injury on zero turn mower / Spl. Instructions: / History: . Pain Technique: 2 views left humerus and 2 views left forearm Comparison: None. Findings: Normal alignment of the humerus. No acute fracture. Moderate left glenohumeral DJD. Normal alignment of the forearm. No acute fracture. Impression: 1. No acute osseous abnormality. Electronically signed by: Jonny Charles DO (12/07/2020 9:44 PM) [facility]
[2020-12-07] MEDS ORDERED: oxyCODONE/APAP 5/325 1 TAB TABLET PO ONE (22:00)
[2020-12-07] MEDS ORDERED: HYDR-1179 PO (22:00)
[2020-12-07 22:10] VITALS: BP 136/89
== END 2020-12-07 22:10 | disposition home or self-care (01) ==
LOC: ER 19:35
DX: S59.912A Unspecified injury of left forearm, initial encounter (principal); E78.5 Hyperlipidemia, unspecified; I10 Essential (primary) hypertension; F17.210 Nicotine dependence, cigarettes, uncomplicated; X50.0XXA Overexertion from strenuous movement or load, initial encounter; Y93.89 Activity, other specified; Y92.89 Other specified places as the place of occurrence of the external cause; Y99.8 Other external cause status
CPT/HCPCS: 29105; 71045; 73060; 73090; 96372; 99284; J1885